=== PATIENT | male | born 1990 | race Caucasian/White ===

== ENCOUNTER 2017-12-20 00:41 | Emergency (ER) | payer OTHER ==
[~2017-12-20] VITALS: Ht 193 cm; Wt 182.0 kg
[2017-12-20 00:45] VITALS: BP 192/79
[2017-12-20] MEDS ORDERED: ACETAMINOPHEN 500 MG TABLET PO ONE (01:00)
[2017-12-20] MEDS ORDERED: ACETAMINOPHEN 500 MG TABLET ONE (01:10)
== END 2017-12-20 01:58 | disposition home or self-care (01) ==
LOC: ED 01:22
DX: G89.11 Acute pain due to trauma (principal); M79.645 Pain in left finger(s); I10 Essential (primary) hypertension; F17.200 Nicotine dependence, unspecified, uncomplicated; X50.1XXA Overexertion from prolonged static or awkward postures, initial encounter; Y93.89 Activity, other specified; Y99.0 Civilian activity done for income or pay; Y92.69 Other specified industrial and construction area as the place of occurrence of the external cause
CPT/HCPCS: 29130; 99284